=== PATIENT | male | born 1985 | race Caucasian/White ===

== ENCOUNTER 2017-05-05 09:35 | Emergency (ER) | payer OTHER ==
--- NOTE | ~2017-05-05 | ER ---
PATIENT'S NAME: CHIQUITA OLIVA [facility] AGE: 31 Y [address] ROOM: [place] [address] LOCATION: [facility] ADMIT DATE: 05/05/2017 ER/Outpatient Report DISCHARGE DATE: 05/05/2017 FAMILY PHYSICIAN: Tao Montenegro MD ATTENDING PHYSICIAN: Roscoe Lantigua Time of arrival: 0935 hours. Time of evaluation: 0935 hours. CHIEF COMPLAINT: Right hand laceration. HISTORY OF PRESENT ILLNESS: The patient is a 31-year-old male, who presents to the emergency department today chief complaint right hand laceration as well as fall. The patient fell off a ladder about 4 to 5 feet high. He attempted to grab onto a metal stud with his right hand and had a large laceration of the right hand. He denies any loss of consciousness. He was at work at [employer] with a co-worker when this occurred. He reports that his tetanus is not up-to-date. Pain is currently 9/10 in severity. It is worse with movement. He initially went to [facility] who transferred him here for further evaluation. PAST MEDICAL HISTORY: None. PAST SURGICAL HISTORY: Knee surgery. SOCIAL HISTORY: The patient denies any tobacco, alcohol, or illicit drug use. ALLERGIES: NO KNOWN DRUG ALLERGIES. MEDICATIONS: None. PRIMARY CARE DOCTOR: Tao Montenegro M.D. REVIEW OF SYSTEMS: All systems are reviewed by myself and negative with the exception of those discussed in HPI and past medical history. PHYSICAL EXAMINATION: PATIENT'S NAME: CHIQUITA OLIVA [facility] AGE: 31 Y [address] ROOM: [place] [address] LOCATION: [facility] ADMIT DATE: 05/05/2017 ER/Outpatient Report DISCHARGE DATE: 05/05/2017 FAMILY PHYSICIAN: Tao Montenegro MD ATTENDING PHYSICIAN: Roscoe Lantigua VITAL SIGNS: Weight 125 kg blood pressure 127/61, pulse 83, respiratory rate 18, temperature 97.9, and oxygen saturation 99% on room air. GENERAL: The patient is a 31-year-old male, appears stated age. In mild acute distress secondary to pain in his hand. HEENT: Head is normocephalic and atraumatic. Pupils are equal, round, and reactive to light and accommodation. Extraocular motions are intact. Nares are patent bilaterally. TMs are clear. Oropharynx is clear. NECK: Supple. There is no nuchal rigidity. No midline tenderness to palpation. CARDIOVASCULAR: Regular rate and rhythm. No murmurs, rubs, or gallops. LUNGS: Clear to auscultation bilaterally. No wheezes, rales, or rhonchi. ABDOMEN: Soft, nontender, and nondistended. No rebound, rigidity, or guarding. MUSCULOSKELETAL: The patient does have full range of motion of all 4 extremities. No bony tenderness to palpation is noted. The muscles of the index finger and thumb are isolated. The patient has full range of motion. He has good muscle strength noted. SKIN: The patient has a 12 cm long laceration from the DIP joints on the palmar aspect to the base of the thumb on the right hand. It is gaping. There is exposed tendon noted. There does not appear to be any tendinous laceration, however. LABORATORY DATA AND X-RAYS: None. IMPRESSION: 1. Twelve cm right palmar hand laceration with simple repair. 2. Fall from 4 to 5 feet. 3. Initial visit. EMERGENCY DEPARTMENT COURSE: The patient was brought back to the examination room. Seen and evaluated by myself. History and physical performed as described by myself. The risks and benefits of suture repair discussed. The patient's tetanus is updated. The patient does wish to proceed with suture repair. The wound is anesthetized with 1% lidocaine without epinephrine locally. The wound is copiously irrigated with soap and water. It is then irrigated with normal saline. A dilute solution of iodine is utilized as well. The wound is closed with a 5-0 Ethilon in simple interrupted fashion. There was good cosmesis and good hemostasis. There is less than 5 mL blood loss. Wound care is discussed with the patient. The patient is placed in a splint. Sutures removed in 12 days. I have discussed that he is to follow up with primary care doctor for the suture removal. I have discussed return to care instructions including worsening symptoms, fevers, chills, purulent drainage, or any other concerns to return to the emergency department as soon as possible. The patient is PATIENT'S NAME: CHIQUITA OLIVA [facility] AGE: 31 Y [address] ROOM: [place], [place] [address] LOCATION: [facility] ADMIT DATE: 05/05/2017 ER/Outpatient Report DISCHARGE DATE: 05/05/2017 FAMILY PHYSICIAN: Tao Montenegro MD ATTENDING PHYSICIAN: Roscoe Lantigua agreeable and his is agreeable without further questions at this time. DISPOSITION: The patient is discharged to home in good condition. DO MALCOM WCIK/anders /[id number] d: 05/05/17 1255 t: 05/06/17 0931, OUTPATIENT REPORT
== END 2017-05-05 10:44 | disposition disaster alternative care site (69) ==
LOC: GACC 09:35
PROC: 0HQFXZZ Repair Right Hand Skin, External Approach (ICD-10-PCS; principal; 2017-05-05)
DX: S61.411A Laceration without foreign body of right hand, initial encounter (principal); Z23 Encounter for immunization; W11.XXXA Fall on and from ladder, initial encounter

== ENCOUNTER 2017-05-12 21:39 | Emergency (ER) | payer SELFPAY ==
--- NOTE | ~2017-05-12 | ER ---
PATIENT'S NAME: CHIQUITA OLIVA [facility] AGE: 31 Y [address] ROOM: [place] [address] LOCATION: [facility] ADMIT DATE: 05/12/2017 ER/Outpatient Report DISCHARGE DATE: 05/12/2017 FAMILY PHYSICIAN: Tao Montenegro MD ATTENDING PHYSICIAN: Elvira Escobar Time of Arrival: 2145 hours. Time of Evaluation: 2200 hours. CHIEF COMPLAINT: Possible stitch has fallen out. HISTORY OF PRESENT ILLNESS: The patient was seen here on May 05 with a laceration to the palm side of the right hand. It was sutured by Dr. Lantigua. He is scheduled to have these stitches out on the . He is concerned tonight because there was one area near the web of the thumb that seems to be gaping open, he is not sure if he lost the stitch there or what. He does have some numbness of the thumb, but that has been going on since the injury and it is not new. Has not had any drainage from the incision. ALLERGIES: MORPHINE AND TORADOL. MEDICATIONS: Rocephin. PAST MEDICAL HISTORY: Recent hand injury. PAST SURGERIES: None. SOCIAL HISTORY: Denies use of tobacco, drugs, or alcohol. REVIEW OF SYSTEMS: All negative other than those mentioned in the HPI. PHYSICAL EXAMINATION: VITAL SIGNS: He weighs 277.8 kg, blood pressure was 150/98, pulse was 74, respirations 18, temperature of 96, and O2 saturation was 98% on room air. GENERAL: He is awake, alert, and oriented x4. SKIN: Zinc, warm, and dry. RESPIRATIONS: Even and nonlabored. PATIENT'S NAME: CHIQUITA OLIVA [facility] AGE: 31 Y [address] ROOM: [place] [address] LOCATION: [facility] ADMIT DATE: 05/12/2017 ER/Outpatient Report DISCHARGE DATE: 05/12/2017 FAMILY PHYSICIAN: Tao Montenegro MD ATTENDING PHYSICIAN: Elvira Escobar EXTREMITIES: The patient has a well-healing laceration of the right palmar hand. Stitches are intact. There is one small area that is gaping between 2 stitches. No drainage from that area. It is not broke open. It looks like it has continued to heal nicely. EMERGENCY DEPARTMENT COURSE: Applied Steri-Strips to the area. Reassured the patient that it was healing nicely and he is to continue to follow up with his primary provider for suture removal as scheduled. IMPRESSION: Healing laceration PLAN: Home. Keep clean and dry. Follow up with primary provider as scheduled for suture removal. He verbalized understanding. BRADY HERNNADEZ APRN FOR MD REX YOU/anders /[id number] d: 05/13/17229 t: 05/14/171953, OUTPATIENT REPORT
== END 2017-05-12 22:07 | disposition disaster alternative care site (69) ==
LOC: GACC 21:39 → GMED 21:39 → GACC 22:07
DX: S61.411D Laceration without foreign body of right hand, subsequent encounter (principal); Z88.8 Allergy status to other drugs, medicaments and biological substances; Z79.899 Other long term (current) drug therapy; X58.XXXD Exposure to other specified factors, subsequent encounter